=== PATIENT | female | born 2005 | race Caucasian/White ===

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

== ENCOUNTER 2024-01-19 13:04 | Outpatient (CLI) | payer OTHER ==
[2024-01-19] MEDS ORDERED: iohexoL-240 10 ML VIAL IVP ONE (13:11)
[2024-01-19] MEDS ORDERED: LIDOCAINE-MPF 1% 5 ML VIAL ONE (13:11)
[2024-01-19] MEDS ORDERED: GADOTERATE MEGLUMINE 5 MMOL/10 ML VIAL ONE (13:11)
[2024-01-19] MEDS: GADOTERATE MEGLUMINE 5 MMOL/10 ML VIAL IVP ONE (14:08)
[2024-01-19] MEDS: LIDOCAINE-MPF 1% 5 ML VIAL TD ONE (14:10)
[2024-01-19] MEDS: iohexoL-240 10 ML VIAL IVP ONE (14:11)
--- NOTE | 2024-01-19 18:17 | MRI Report ---
Arthrogram Shoulder RT CLINICAL HISTORY: 18 years of age, Female, R SHOULDER PAIN. Comparison: No priors available Technique: After the administration of 12 mL of dilute intra-articular Gadolinium contrast, oblique c oronal T1 and T2 spin echo with fat saturation, oblique sagittal T1 spin echo with and without fat sa turation, oblique sagittal T2 fast spin echo with fat saturation, axial T1 spin echo with fat saturat ion through the shoulder. Findings: Osseous acromial outlet: No significant degenerative changes acromioclavicular joint. Type II acromio n. No os acromiale. Trace subacromial/subdeltoid bursitis. Rotator cuff muscles and tendons: The supraspinatus, infraspinatus, subscapularis, and teres minor ar e intact without evidence of tendinosis or tear. Muscles are intact without evidence of atrophy or edema. Labral and capsular structures: The visualized labrum appears intact on limited non-arthrogram sequen trevor. No paralabral cyst. Biceps tendon and anchor: Mild tendinosis of the intra-articular and extra-articular biceps tendon. Osseous and cartilaginous structures: Bone marrow signal is within normal limits. No fracture or disl ocation. No focal chondral defects. Miscellaneous: No intra-articular bodies. The remaining muscles are normal in bulk without evidence o f atrophy or edema. IMPRESSION: 1.Mild tendinosis of the proximal biceps tendon. 2.Trace subacromial/subdeltoid bursitis. Reviewed by: Nazia Luna MD on 01/19/2024 6:16 PM PDT Approved by: Nazia Luna MD on 01/19/2024 6:16 PM PDT Station ID: [id number]
--- NOTE | 2024-01-20 08:16 | XRAY Report ---
PROCEDURE: Arthrogram Needle Placement INDICATIONS: R SHOULDER PAIN FLUOROSCOPY TIME: Less than 1 minute TECHNIQUE: The indications, alternatives, benefits, risks, and complications of the procedure were explained to the patient. Written informed consent was obtained and placed in the chart. The shoulder was examin ed fluoroscopically and a site for needle placement chosen for entry into the glenohumeral joint from an anterior approach. The skin was prepped and draped in the usual fashion, and 1% lidocaine infilt rated from skin down to joint capsule. A spinal needle was inserted into the glenohumeral joint, and a small amount of iodinated contrast media injected to confirm intra-articular placement of the need le tip. This was followed by approximately 12 mL dilute solution of a gadolinium containing MR contr ast agent. The needle was removed and a dressing was applied. The patient was given postprocedural instructions and sent to the MR suite for MR imaging. FINDINGS: A single fluoroscopic spot image demonstrates intra-articular location of injected iodinated contrast . IMPRESSION: Successful fluoroscopically guided administration of dilute Gadolinium solution into the shoulder dora hester for MR arthrogram. Reviewed by: Edilson Gomez MD on 01/20/2024 8:14 AM PDT Approved by: Edilson Gomez MD on 01/20/2024 8:14 AM PDT Station ID: [id number]
== END 2024-01-19 13:05 | disposition home or self-care (01) ==
LOC: DI 13:04
PROVIDERS: ATTEND Family Medicine
DX: M67.921 Unspecified disorder of synovium and tendon, right upper arm (principal); M75.51 Bursitis of right shoulder
CPT/HCPCS: 23350; 73222; 77002; A9575; Q9966